=== PATIENT | male | born 1955 | race African-American/Black ===

== ENCOUNTER 2024-04-11 01:38 | Emergency (ER) | payer MEDICARE, MEDICAID ==
[~2024-04-11] VITALS: Ht 175.3 cm; Wt 100.0 kg
[2024-04-11 01:45] VITALS: O2SAT 96
[2024-04-11] MEDS: ONDANSETRON HCL 4MG/2ML INJ IV STA (02:34)
[2024-04-11] MEDS: SODIUM CHLORIDE 0.9% 1,000 ML IV ONE (02:34)
[2024-04-11] MEDS: MORPHINE SULFATE 4 MG/ML INJ (FOR IV/IM USE) IV STA (02:34)
[2024-04-11 02:40] LABS: BASOPHILS % 0.6 % (0.0-2.0); DIFFERENTIAL COMMENT 0; EOSINOPHILS % 0.3 % (0.0-5.0); HEMATOCRIT. 34.1 % (42.0-52.0); HEMOGLOBIN. 11.5 g/dL (14.0-18.0); LYMPHOCYTES % 11.4 % (20.0-50.0); MEAN CORPUSCULAR HEMOGLOBIN 33.7 pg (28.0-32.0); MEAN CORPUSCULAR HGB CONC 33.6 g/dL (31.0-37.0); MEAN CORPUSCULAR VOLUME 100.1 fL (80.0-94.0); MEAN PLATELET VOLUME 9.6 fl (7.4-10.4); MONOCYTES % 4.1 % (2.0-8.0); NEUTROPHILS % 83.6 % (40.0-76.0); PLATELET 95 x1000/uL (130-400); RED BLOOD CELL COUNT 3.41 mill/uL (4.7-6.1); RED CELL DISTRIBUTION WIDTH 15.4 % (11.6-14.6)
[2024-04-11 02:48] LABS: CHLORIDE 102 mEq/L (98-107); POTASSIUM 3.9 mEq/L (3.5-5.1); SODIUM 140 mEq/L (136-145)
[2024-04-11 02:49] LABS: CALCIUM 10.1 mg/dL (8.7-10.4); CARBON DIOXIDE 28 mEq/L (21-32)
[2024-04-11 02:50] LABS: INR 1.2; PROTHROMBIN TIME 13.2 sec (9.6-11.0)
[2024-04-11 02:54] LABS: CREATININE 2.1 mg/dL (0.6-1.3); GLUCOSE 121 mg/dL (70-105)
[2024-04-11 02:55] LABS: TROPONIN I HIGH SENSITIVITY 50 ng/L (3.0-53); UREA NITROGEN BLOOD 34 mg/dL (9-23)
[2024-04-11 02:56] LABS: ALANINE AMINOTRANSFERASE < 7 IU/L (10-49); ALBUMIN 4.5 g/dL (3.2-4.8); ASPARTATE AMINOTRANSFERASE 16 IU/L (<34); BILIRUBIN DIRECT 0.2 mg/dL (<=3.0)
[2024-04-11 02:57] LABS: BILIRUBIN TOTAL 0.6 mg/dL (0.1-1.0); PROTEIN TOTAL 8.2 g/dL (6.0-8.3)
[2024-04-11] MEDS ORDERED: MORPHINE SULFATE/PF 1 MG/ML 100 MG in BAG 1 EACH IV STA (03:25)
[2024-04-11] MEDS ORDERED: ESMOLOL 2500MG PREMIX 250 ML IV PRN (03:30)
[2024-04-11] MEDS: ESMOLOL 2500MG PREMIX 250 ML IV PRN (03:55)
[2024-04-11] MEDS: MORPHINE SULFATE 4 MG/ML INJ (FOR IV/IM USE) IV ONE (04:00)
[2024-04-11] MEDS: NICARDIPINE 40 MG/200 ML PREMIX 200 ML IV PRN (04:38)
[2024-04-11] MEDS: MORPHINE (DRIP)100 MG in DEXT 5% WATER 100 ML IV NR (04:38)
[2024-04-11 04:46] VITALS: BP 144/79; PULSE 62; RESP 14; TEMP 36.89184; O2SAT 97
[2024-04-11] MEDS ORDERED: IOHEXOL-350 100 ML BOTTLE ONE (05:08)
== END 2024-04-11 05:00 | disposition short-term general hospital (02) ==
LOC: ER 01:38
DX: I71.02 Dissection of abdominal aorta (principal); I71.03 Dissection of thoracoabdominal aorta; I16.1 Hypertensive emergency; E11.9 Type 2 diabetes mellitus without complications; I10 Essential (primary) hypertension; I48.91 Unspecified atrial fibrillation; F19.90 Other psychoactive substance use, unspecified, uncomplicated; Z88.0 Allergy status to penicillin; Z95.810 Presence of automatic (implantable) cardiac defibrillator; Z86.79 Personal history of other diseases of the circulatory system
CPT/HCPCS: 80076; 80048; 83605; 83690; 85025; 85610; 86850; 86900; 86901; 84484; 36415; 74174; 71045; 71275; 93005; 96368; 96361; 96365; 96375; 96376; 99291; Q9967; Z7610; J3490; J2405; J2270 ×2; J7060; J7030; J2274